=== PATIENT | male | born 1940 | race Hispanic/Latino ===

== ENCOUNTER 2017-07-15 01:47 | Observation (INO) | payer OTHER ==
[~2017-07-15] VITALS: Ht 175.3 cm; Wt 98.0 kg
[2017-07-15] MEDS ORDERED: PROCHLORPERAZINE EDISYLATE 10 MG/2 ML VIAL ONE (02:04)
[2017-07-15] MEDS ORDERED: SODIUM CHLORIDE 0.9% 500ML 500 ML IV ONE (02:04)
[2017-07-15 02:13] LABS: BASOPHILS % (AUTO) 0.6 % (0.0-5.0); EOSINOPHILS % (AUTO) 2.1 % (0.0-8.0); HEMATOCRIT 44.9 % (42-54); MEAN CORPUSCULAR HEMOGLOBIN 29.6 pg (27.0-33.0); MEAN CORPUSCULAR HGB CONC 34.2 g/dL (32.0-36.0); MEAN CORPUSCULAR VOLUME 86.6 fL (79-99); MONOCYTES % (AUTO) 6.2 % (3.0-13.0); NEUTROPHILS % (AUTO) 76.1 % (40.0-77.0); PLATELET COUNT (AUTO) 165 K/uL (130-400); RED BLOOD CELL COUNT(AUTO) 5.19 MIL/uL (4.50-6.20); RED CELL DISTRIBUTION WIDTH 13.7 % (11.0-15.5); WHITE BLOOD COUNT (AUTO) 7.8 K/uL (4.8-10.8)
[2017-07-15 02:23] LABS: INR 0.98 (0.85-1.15); PROTHROMBIN TIME 10.3 SEC (9.6-11.6)
[2017-07-15 02:25] LABS: CREATININE 1.3 mg/dL (0.5-1.5); POTASSIUM 3.7 mmol/L (3.5-5.1)
[2017-07-15 02:33] LABS: ALBUMIN 3.8 g/dL (3.5-5.0); BILIRUBIN,DIRECT 0.1 mg/dL (0.0-0.3); BILIRUBIN,TOTAL 0.3 mg/dL (0.2-1.0); TOTAL PROTEIN, SERUM 7.5 g/dL (6.0-8.3)
[2017-07-15 05:10] LABS: APPEARANCE,URINE Clear (CLEAR); BILIRUBIN,URINE Negative (NEGATIVE); COLOR,URINE Yellow (YELLOW); GLUCOSE, URINE (UA) Negative (NEGATIVE); KETONES,URINE Negative (NEGATIVE); LEUKOCYTE ESTERASE ,URINE Negative (NEGATIVE); NITRATE,URINE Negative (NEGATIVE); OCCULT BLOOD,URINE Negative (NEGATIVE); PH,URINE 5.5 (5.0-8.0); PROTEIN,URINE Negative (NEGATIVE); UROBILINOGEN,URINE 0.2 mg/dL (0.2-1.0)
[2017-07-15] MEDS ORDERED: ASPIRIN 81MG TAB.CHEW ONE (05:16)
[2017-07-15 05:28] LABS: AMPHET/METH SCREEN,URINE NEGATIVE (NEGATIVE); BARBITURATE SCREEN, URINE NEGATIVE (NEGATIVE); BENZODIAZEPINES SCREEN,URINE NEGATIVE (NEGATIVE); CANNABINOID SCREEN,URINE NEGATIVE (NEGATIVE); COCAINE SCREEN,URINE NEGATIVE (NEGATIVE); OPIATE SCREEN,URINE NEGATIVE (NEGATIVE); PHENCYCLIDINE SCREEN,URINE NEGATIVE (NEGATIVE)
[2017-07-15] MEDS ORDERED: MECLIZINE HCL 25 MG TABLET ONE (05:50)
[2017-07-15] MEDS ORDERED: POTASSIUM CHLORIDE 20 MEQ ERTAB PO ONE (05:51)
[2017-07-15] MEDS ORDERED: SODIUM CHLORIDE 0.9% 1000ML 1,000 ML IV ONE (06:18)
[2017-07-15] MEDS ORDERED: DEXTROSE 50%-WATER 50 ML DISP.SYRIN IV PRN (07:15)
[2017-07-15] MEDS ORDERED: GLUCAGON 1MG KIT 1 MG ML IM PRN (07:15)
[2017-07-15] MEDS: MECLIZINE HCL 25 MG TABLET PO SCH ×3 (09:00→21:32)
[2017-07-15] MEDS: HUMALOG PO SS1 SQ SCH ×3 (11:30→21:00)
[2017-07-15 12:00] VITALS: BP 138/93
[2017-07-15] MEDS: SODIUM CHLORIDE 0.9% 1000ML 1,000 ML IV SCH ×2 (12:20→23:17)
[2017-07-15] MEDS ORDERED: FLUTICASONE PROPIONATE 50MCG/SPRAY 16 GM BOTTLE EN SCH (13:00)
[2017-07-15] MEDS: LEVOFLOXACIN 500 MG/D5W 100 ML 100 ML IV SCH (15:12)
[2017-07-15 16:00] VITALS: BP 124/75
[2017-07-15] MEDS ORDERED: SIMV40TA5 PO (18:49)
[2017-07-15] MEDS ORDERED: CITA10TA7 PO (18:49)
[2017-07-15] MEDS ORDERED: LISI-613 PO (18:49)
[2017-07-15] MEDS ORDERED: NIFE30TA98 PO (18:49)
[2017-07-15] MEDS ORDERED: TAMS0.4C32 PO (18:49)
[2017-07-15] MEDS ORDERED: ASPI-555 PO (18:49)
[2017-07-15] MEDS ORDERED: MIRT30TA6 PO (18:49)
[2017-07-15 19:56] VITALS: BP 128/83
[2017-07-15 23:35] VITALS: BP 137/77
[2017-07-16 04:00] VITALS: BP 146/88
[2017-07-16] MEDS: HUMALOG PO SS1 SQ SCH ×2 (06:55→11:30)
[2017-07-16 07:38] VITALS: BP 145/90
[2017-07-16] MEDS: MECLIZINE HCL 25 MG TABLET PO SCH ×2 (08:20→13:51)
[2017-07-16 11:19] VITALS: BP 146/84
[2017-07-16] MEDS ORDERED: MECL-111 PO (12:44)
[2017-07-16] MEDS ORDERED: AMOX-429 PO (12:44)
[2017-07-16] MEDS: LEVOFLOXACIN 500 MG/D5W 100 ML 100 ML IV SCH (12:51)
== END 2017-07-16 15:21 | disposition home or self-care (01) ==
LOC: EDH 01:47 → EDHIP 05:45 → 4CH 11:36
PROVIDERS: ADMIT Family Medicine; ATTEND Family Medicine
DX: R42 Dizziness and giddiness (principal); R09.02 Hypoxemia; H70.93 Unspecified mastoiditis, bilateral; I10 Essential (primary) hypertension; E11.51 Type 2 diabetes mellitus with diabetic peripheral angiopathy without gangrene; E78.5 Hyperlipidemia, unspecified; F32.9 Major depressive disorder, single episode, unspecified; I25.10 Atherosclerotic heart disease of native coronary artery without angina pectoris; M19.90 Unspecified osteoarthritis, unspecified site; N40.0 Benign prostatic hyperplasia without lower urinary tract symptoms; R97.20 Elevated prostate specific antigen [PSA]; Z95.1 Presence of aortocoronary bypass graft; Z79.899 Other long term (current) drug therapy
CPT/HCPCS: 36415; 70450; 70551; 80048; 80076; 80305; 81003; 82550; 82948 ×6; 83690; 84484; 85025; 85610; 85730; 93005; 93306; 93880; 96361 ×2; 96365; 96366; 99285; G0378 ×34; J0780; J1956 ×2; J7030 ×3; J7040

== ENCOUNTER 2023-12-14 14:43 | Inpatient (IN) | payer OTHER ==
[~2023-12-14] VITALS: Ht 175.3 cm; Wt 94.9 kg
[~2023-12-14 14:43] MED LIST: AMOX-429 PO; ASPI-556 PO; CITA10TA89 PO; LISI20TA24 PO; MECL-302 PO; MIRT-93 PO; NIFE-78 PO; ROCURONIUM BROMIDE 10MG/1ML 5ML VL IV ONE; SIMV-46 PO; TAMS0.4C32 PO
[2023-12-14 15:52] LABS: BASOPHILS # (AUTO) 0.01 K/uL (0.00-0.20); BASOPHILS % (AUTO) 0.2 % (0.0-5.0); EOSINOPHILS % (AUTO) 1.7 % (0.0-8.0); HEMATOCRIT 43.9 % (42-54); IMMATURE GRANULOCYTE ABSOLUTE 0.03 K/uL (0-1); LYMPHOCYTES # (AUTO) 0.6 K/uL (1.0-4.8); LYMPHOCYTES % (AUTO) 9.9 % (21.0-51.0); MEAN CORPUSCULAR HEMOGLOBIN 29.2 pg (27.0-33.0); MEAN CORPUSCULAR HGB CONC 30.1 g/dL (32.0-36.0); MEAN CORPUSCULAR VOLUME 97.1 fL (79-99); MONOCYTES # (AUTO) 0.6 K/uL (0.1-1.0); MONOCYTES % (AUTO) 10.4 % (3.0-13.0); NEUTROPHILS # (AUTO) 4.5 K/uL (1.8-7.7); NEUTROPHILS % (AUTO) 77.3 % (40.0-77.0); NUCLEATED RED BLOOD CELLS 0.3 % (0.0-0.19); PLATELET COUNT (AUTO) 153 K/uL (130-400); RED BLOOD CELL COUNT(AUTO) 4.52 MIL/uL (4.50-6.20); RED CELL DISTRIBUTION WIDTH 14.5 % (11.0-15.5); WHITE BLOOD COUNT (AUTO) 5.9 K/uL (4.8-10.8)
[2023-12-14 15:53] VITALS: PULSE 75; RESP 26; O2SAT 99
[2023-12-14 15:54] LABS: ABG BASE EXCESS 4.2 mmol/L (-2.0-3.0); ABG HCO3 32.3 mmol/L (21.0-28.0); ABG OXYGEN SATURATION 69.3 % (95.0-99.0); ABG PCO2 64 mmHg (35-48); ABG PH 7.323 (7.35-7.450); DEVICE COMMENT RR OSCAR; PO2, ARTERIAL BG < 45.0 mmHg (83.0-108.0); VENT MODE, BG RA (ROOM AIR)
[2023-12-14 16:00] LABS: CREATININE 1.4 mg/dL (0.5-1.3); POTASSIUM 4.6 mmol/L (3.5-5.1)
[2023-12-14 16:08] LABS: ALBUMIN 3.2 g/dL (3.5-5.0); BILIRUBIN,TOTAL 0.2 mg/dL (0.2-1.0); TOTAL PROTEIN, SERUM 6.8 g/dL (6.0-8.3)
[2023-12-14] MEDS ORDERED: IOHEXOL 350 MG/ML 100ML INFUS..BTL IV ONE (17:10)
[2023-12-14] MEDS: FUROSEMIDE 40MG VIAL IV ONE (19:29)
[2023-12-14 19:45] VITALS: PULSE 78; RESP 24; O2SAT 96
[2023-12-14] MEDS ORDERED: LACTULOSE 20 GM/30 ML UDCUP PO PRN (20:30)
[2023-12-14] MEDS ORDERED: DOCUSATE SODIUM 100 MG CAP PO PRN (20:30)
[2023-12-14] MEDS ORDERED: IPRATROPIUM/ALBUTEROL SULFATE 3 ML SOLUTION IH PRN (20:30)
[2023-12-14] MEDS ORDERED: ONDANSETRON 4MG INJ IVP PRN (20:30)
[2023-12-14 20:42] LABS: ABG BASE EXCESS 1.3 mmol/L (-2.0-3.0); ABG HCO3 31.6 mmol/L (21.0-28.0); ABG OXYGEN SATURATION 94.2 % (95.0-99.0); ABG PCO2 80 mmHg (35-48); ABG PH 7.216 (7.35-7.450); CARBON MONOXIDE 0.6; HHb 5.7; PO2, ARTERIAL BG 78.8 mmHg (83.0-108.0); VENT MODE, BG BIPAP 14-7 (ROOM AIR)
[2023-12-14] MEDS: INSULIN HUMULIN R 100 UNIT/ML 3ML SQ SCH (21:00)
[2023-12-14 21:29] VITALS: PULSE 72; RESP 32; O2SAT 97
[2023-12-14] MEDS: LISINOPRIL 10 MG TABLET PO SCH (21:45)
[2023-12-14] MEDS: ASPIRIN 81 MG EC TAB PO SCH (21:45)
[2023-12-14] MEDS: ATORVASTATIN 40 MG TABLET PO SCH (21:45)
[2023-12-14] MEDS: TAMSULOSIN HCL 0.4 MG CAP.ER.24H PO SCH (21:45)
[2023-12-14] MEDS: DOXYCYCLINE 100MG+NS 250ML 250 ML IV SCH (21:46)
[2023-12-14] MEDS: HEPARIN 5,000 UNIT VIAL SQ SCH (21:46)
[2023-12-14] MEDS: SOLU-MEDROL 125MG VIAL IVP ONE (21:46)
[2023-12-14 22:39] LABS: SARS-CoV-2, RNA, NAAT NEGATIVE SARS CoV-2 (NEGATIVE)
[2023-12-14 22:45] LABS: INFLUENZA TYPE A Negative For Type A (NEGATIVE); INFLUENZA TYPE B Negative For Type B (NEGATIVE)
[2023-12-14 23:20] LABS: APPEARANCE,URINE CLEAR (CLEAR); BILIRUBIN,URINE NEGATIVE (NEGATIVE); COLOR,URINE COLORLESS (YELLOW); GLUCOSE, URINE (UA) NEGATIVE (NEGATIVE); KETONES,URINE NEGATIVE (NEGATIVE); LEUKOCYTE ESTERASE ,URINE NEGATIVE Leu/uL (NEGATIVE); NITRATE,URINE NEGATIVE (NEGATIVE); OCCULT BLOOD,URINE NEGATIVE (NEGATIVE); PROTEIN,URINE NEGATIVE (NEGATIVE); UROBILINOGEN,URINE 0.2 mg/dL (0.2-1.0)
[2023-12-14 23:23] LABS: ADD UA MICROSCOPIC NO
[2023-12-15] VITALS (54 sets, daily range): BP systolic 70–179; BP diastolic 40–98; PULSE 66–96; RESP 11–46; O2SAT 88–98
[2023-12-15] MEDS: TEMAZEPAM 15 MG CAPSULE PO PRN (00:07)
[2023-12-15] MEDS: IPRATROPIUM 0.5 MG/2.5 ML INH IH SCH (00:17)
[2023-12-15 01:11] LABS: ABG BASE EXCESS 4.9 mmol/L (-2.0-3.0); ABG HCO3 33.3 mmol/L (21.0-28.0); ABG OXYGEN SATURATION 85.9 % (95.0-99.0); ABG PCO2 66 mmHg (35-48); ABG PH 7.319 (7.35-7.450); PO2, ARTERIAL BG 56.2 mmHg (83.0-108.0); VENT MODE, BG BIPAP 16-7 (ROOM AIR)
[2023-12-15 06:28] LABS: BASOPHILS # (AUTO) 0.02 K/uL (0.00-0.20); BASOPHILS % (AUTO) 0.2 % (0.0-5.0); HEMATOCRIT 45.8 % (42-54); IMMATURE GRANULOCYTE ABSOLUTE 0.07 K/uL (0-1); LYMPHOCYTES # (AUTO) 0.5 K/uL (1.0-4.8); LYMPHOCYTES % (AUTO) 4.9 % (21.0-51.0); MEAN CORPUSCULAR HEMOGLOBIN 28.7 pg (27.0-33.0); MEAN CORPUSCULAR HGB CONC 30.6 g/dL (32.0-36.0); MONOCYTES # (AUTO) 0.1 K/uL (0.1-1.0); MONOCYTES % (AUTO) 1.2 % (3.0-13.0); NEUTROPHILS # (AUTO) 8.7 K/uL (1.8-7.7); PLATELET COUNT (AUTO) 150 K/uL (130-400); RED BLOOD CELL COUNT(AUTO) 4.87 MIL/uL (4.50-6.20); RED CELL DISTRIBUTION WIDTH 14.4 % (11.0-15.5); WHITE BLOOD COUNT (AUTO) 9.4 K/uL (4.8-10.8)
[2023-12-15] MEDS: SOLU-MEDROL 125MG VIAL IVP SCH (06:35)
[2023-12-15 06:44] LABS: CREATININE 1.3 mg/dL (0.5-1.3); MAGNESIUM 2.2 mg/dL (1.80-2.40); PHOSPHORUS 4.4 mg/dL (2.5-4.9)
[2023-12-15 07:13] LABS: HEMOGLOBIN A1C 7.4 % (4.0-6.0)
[2023-12-15 07:52] LABS: ABG BASE EXCESS 3.6 mmol/L (-2.0-3.0); ABG HCO3 35.4 mmol/L (21.0-28.0); ABG OXYGEN SATURATION 94.4 % (95.0-99.0); ABG PCO2 94 mmHg (35-48); ABG PH 7.192 (7.35-7.450); CARBON MONOXIDE 0.8; HHb 5.5; PO2, ARTERIAL BG 82.2 mmHg (83.0-108.0)
[2023-12-15] MEDS: ASPIRIN 81MG CHEW TAB PO SCH (09:00)
[2023-12-15] MEDS: CEFTRIAXONE 2GM VIAL IVPB SCH (15:45)
[2023-12-15] MEDS: FUROSEMIDE 100MG VIAL 100 MG in 0.9%NACL 100ML 100 ML IV SCH (15:52)
[2023-12-15] MEDS: BUDESONIDE 0.5 MG/2 ML INH IH SCH (18:19)
[2023-12-15 18:24] LABS: CREATININE 1.2 mg/dL (0.5-1.3); POTASSIUM 5.1 mmol/L (3.5-5.1)
[2023-12-15] MEDS: FAMOTIDINE 20MG VIAL IV SCH (20:47)
[2023-12-15] MEDS: MIRTAZAPINE 15 MG TABLET PO SCH (20:50)
[2023-12-15] MEDS ORDERED: NON-FORMULARY MEDICATION 1 EACH (Mirtazapine 30 MG) PO SCH ×2 (21:00)
[2023-12-15] MEDS ORDERED: MIDAZOLAM HCL 1 MG/ML 2ML VIAL IVP PRN (22:30)
[2023-12-15] MEDS: SOLU-MEDROL 40MG VIAL IVP SCH (23:16)
[2023-12-15] MEDS: NOREPINEPHRIN 4MG/NS 250ML 250 ML IV SCH (23:17)
[2023-12-15] MEDS: FENTANYL 2500MCG+NS 250ML 250 ML IV SCH (23:17)
[2023-12-15] MEDS: NOREPINEPHRIN 4MG/NS 250ML 250 ML IV ONE (23:24)
[2023-12-15] MEDS: FENTANYL 1000MCG+NS 100ML 100 ML IV ONE (23:24)
[2023-12-16] VITALS (129 sets, daily range): BP systolic 82–130; BP diastolic 42–93; PULSE 56–75; RESP 12–35; O2SAT 91–98
[2023-12-16 01:38] LABS: CREATININE 1.3 mg/dL (0.5-1.3); POTASSIUM 4.8 mmol/L (3.5-5.1)
[2023-12-16] MEDS ORDERED: 0.9%NACL 50ML IV SCH (02:30)
[2023-12-16] MEDS ORDERED: CALCIUM GLUC 1GM/10ML VIAL IVPB SCH (02:30)
[2023-12-16] MEDS: CALCIUM GLUC 1GM/10ML VIAL IV SCH (02:56)
[2023-12-16 04:21] LABS: BASOPHILS # (AUTO) 0.01 K/uL (0.00-0.20); BASOPHILS % (AUTO) 0.1 % (0.0-5.0); HEMATOCRIT 45.4 % (42-54); IMMATURE GRANULOCYTE ABSOLUTE 0.06 K/uL (0-1); LYMPHOCYTES # (AUTO) 0.3 K/uL (1.0-4.8); LYMPHOCYTES % (AUTO) 3.2 % (21.0-51.0); MEAN CORPUSCULAR HEMOGLOBIN 29.1 pg (27.0-33.0); MEAN CORPUSCULAR HGB CONC 30.2 g/dL (32.0-36.0); MEAN CORPUSCULAR VOLUME 96.6 fL (79-99); MONOCYTES # (AUTO) 0.8 K/uL (0.1-1.0); NEUTROPHILS % (AUTO) 88.1 % (40.0-77.0); NUCLEATED RED BLOOD CELLS 0.4 % (0.0-0.19); PLATELET COUNT (AUTO) 166 K/uL (130-400); RED CELL DISTRIBUTION WIDTH 13.8 % (11.0-15.5); WHITE BLOOD COUNT (AUTO) 10.2 K/uL (4.8-10.8)
[2023-12-16] MEDS: MAGNESIUM 2GM PREMIX 50ML 50 ML IV SCH (05:44)
[2023-12-16 05:53] LABS: CREATININE 1.4 mg/dL (0.5-1.3); POTASSIUM 4.1 mmol/L (3.5-5.1)
[2023-12-16 07:28] LABS: ABG BASE EXCESS 5.1 mmol/L (-2.0-3.0); ABG HCO3 37.6 mmol/L (21.0-28.0); ABG OXYGEN SATURATION 97.8 % (95.0-99.0); ABG PCO2 103 mmHg (35-48); ABG PH 7.181 (7.35-7.450); DEVICE COMMENT RR JULIA RN; PO2, ARTERIAL BG 134.7 mmHg (83.0-108.0); VENT MODE, BG AVAPS 600 (ROOM AIR)
[2023-12-16 07:28] LABS: ABG BASE EXCESS 8.1 mmol/L (-2.0-3.0); ABG HCO3 28.2 mmol/L (21.0-28.0); ABG OXYGEN SATURATION 95.7 % (95.0-99.0); ABG PCO2 27 mmHg (35-48); ABG PH 7.635 (7.35-7.450); CARBON MONOXIDE 0.8; DEVICE COMMENT RR; HHb 4.3; PO2, ARTERIAL BG 55.9 mmHg (83.0-108.0); VENT MODE, BG AC (ROOM AIR)
[2023-12-16 07:28] LABS: ABG BASE EXCESS 3.5 mmol/L (-2.0-3.0); ABG HCO3 35.3 mmol/L (21.0-28.0); ABG OXYGEN SATURATION 84.2 % (95.0-99.0); ABG PCO2 94 mmHg (35-48); ABG PH 7.191 (7.35-7.450); PO2, ARTERIAL BG 61.6 mmHg (83.0-108.0); VENT MODE, BG BIPAP 17.7 (ROOM AIR)
[2023-12-16 07:28] LABS: ABG BASE EXCESS 8.3 mmol/L (-2.0-3.0); ABG HCO3 35.3 mmol/L (21.0-28.0); ABG PCO2 57 mmHg (35-48); ABG PH 7.407 (7.35-7.450); HHb 10.9; VENT MODE, BG AC (ROOM AIR)
[2023-12-16 07:29] LABS: ABG BASE EXCESS 8.9 mmol/L (-2.0-3.0); ABG HCO3 30.2 mmol/L (21.0-28.0); ABG OXYGEN SATURATION 97.4 % (95.0-99.0); ABG PCO2 31 mmHg (35-48); ABG PH 7.602 (7.35-7.450); CARBON MONOXIDE 0.6; DEVICE COMMENT RR; HHb 2.6; PO2, ARTERIAL BG 69.9 mmHg (83.0-108.0); VENT MODE, BG AC (ROOM AIR)
[2023-12-16] MEDS ORDERED: BUMETANIDE 2.5MG/10ML (DRIP) 40 ML IV SCH (08:00)
[2023-12-16] MEDS: MIDAZOLAM 50MG-0.9% NS 50ML 50 ML IV SCH (09:06)
[2023-12-16 09:41] LABS: ABG BASE EXCESS 8.7 mmol/L (-2.0-3.0); ABG HCO3 36.6 mmol/L (21.0-28.0); ABG OXYGEN SATURATION 99.4 % (95.0-99.0); ABG PCO2 64 mmHg (35-48); ABG PH 7.375 (7.35-7.450); DEVICE COMMENT RN EDDIE; VENT MODE, BG AC (ROOM AIR)
[2023-12-16] MEDS ORDERED: VANCOMYCIN PROTOCOL PER PHARMACY IV SCH (12:00)
[2023-12-16] MEDS: ARTIFICAL TEARS SOL 15 ML OU SCH (12:00)
[2023-12-16] MEDS: VANCOMYCIN 1.25 GM/250 ML BAG 250 ML IV SCH (12:49)
[2023-12-16] MEDS: CHLORHEXIDINE GLUCONATE 15 ML MOUTHWASH MM SCH (12:49)
[2023-12-16] MEDS: FUROSEMIDE 100MG VIAL 100 MG in 0.9%NACL 100ML 100 ML IV SCH (16:54)
[2023-12-16 16:55] LABS: CREATININE 1.6 mg/dL (0.5-1.3); MAGNESIUM 2.4 mg/dL (1.80-2.40); POTASSIUM 4.1 mmol/L (3.5-5.1)
[2023-12-16] MEDS: INSULIN HUMULIN R 100 UNIT/ML 3ML SQ SCH (17:09)
[2023-12-16 21:36] LABS: ABG BASE EXCESS 8.5 mmol/L (-2.0-3.0); ABG HCO3 34.5 mmol/L (21.0-28.0); ABG OXYGEN SATURATION 92.7 % (95.0-99.0); ABG PCO2 52 mmHg (35-48); ABG PH 7.437 (7.35-7.450); CARBON MONOXIDE 0.5; HHb 7.2; PO2, ARTERIAL BG 63.5 mmHg (83.0-108.0); VENT MODE, BG AC VC (ROOM AIR)
[2023-12-16 22:02] LABS: CREATININE 1.6 mg/dL (0.5-1.3); POTASSIUM 4.1 mmol/L (3.5-5.1)
[2023-12-17] VITALS (95 sets, daily range): BP systolic 86–167; BP diastolic 41–92; PULSE 51–128; RESP 18–61; O2SAT 92–96
[2023-12-17] MEDS ORDERED: DIGOXIN 250 MCG/ML 2ML AMP IV ONE (02:30)
[2023-12-17 03:58] LABS: HEMATOCRIT 43.3 % (42-54); IMMATURE GRANULOCYTE ABSOLUTE 0.05 K/uL (0-1); LYMPHOCYTES # (AUTO) 0.3 K/uL (1.0-4.8); LYMPHOCYTES % (AUTO) 3.1 % (21.0-51.0); MEAN CORPUSCULAR HEMOGLOBIN 28.4 pg (27.0-33.0); MEAN CORPUSCULAR HGB CONC 31.2 g/dL (32.0-36.0); MEAN CORPUSCULAR VOLUME 91.2 fL (79-99); MONOCYTES # (AUTO) 1.1 K/uL (0.1-1.0); MONOCYTES % (AUTO) 9.7 % (3.0-13.0); NEUTROPHILS # (AUTO) 9.4 K/uL (1.8-7.7); NEUTROPHILS % (AUTO) 86.7 % (40.0-77.0); PLATELET COUNT (AUTO) 184 K/uL (130-400); RED BLOOD CELL COUNT(AUTO) 4.75 MIL/uL (4.50-6.20); RED CELL DISTRIBUTION WIDTH 15.1 % (11.0-15.5); WHITE BLOOD COUNT (AUTO) 10.9 K/uL (4.8-10.8)
[2023-12-17 04:29] LABS: ALBUMIN 2.9 g/dL (3.5-5.0); BILIRUBIN,TOTAL 0.3 mg/dL (0.2-1.0); CREATININE 1.6 mg/dL (0.5-1.3); MAGNESIUM 2.5 mg/dL (1.80-2.40); PHOSPHORUS 3.1 mg/dL (2.5-4.9); POTASSIUM 4.1 mmol/L (3.5-5.1); TOTAL PROTEIN, SERUM 6.5 g/dL (6.0-8.3)
[2023-12-17] MEDS ORDERED: FUROSEMIDE 40MG VIAL IV STA (07:37)
[2023-12-17 07:42] LABS: INR 1.07 (0.85-1.15); PROTHROMBIN TIME 11.5 SEC (9.6-11.6)
[2023-12-17] MEDS ORDERED: PHENYLEPHRINE HCL 100 MG in 0.9% NACL 250ML 250 ML IV SCH (08:00)
[2023-12-17] MEDS ORDERED: MIDAZOLAM HCL 50 MG in 0.9%NACL 50ML 50 ML IV SCH (08:00)
[2023-12-17] MEDS: LACTATED RINGERS 1000ML IV SCH (09:57)
[2023-12-17 13:48] LABS: ABG BASE EXCESS 5.6 mmol/L (-2.0-3.0); ABG HCO3 30.5 mmol/L (21.0-28.0); ABG OXYGEN SATURATION 95.1 % (95.0-99.0); ABG PCO2 45 mmHg (35-48); ABG PH 7.447 (7.35-7.450); CARBON MONOXIDE 0.4; HHb 4.9; PO2, ARTERIAL BG 71.4 mmHg (83.0-108.0); VENT MODE, BG AC MODE (ROOM AIR)
[2023-12-17] MEDS: DIGOXIN 250 MCG/ML 2ML AMP IV ONE (21:33)
[2023-12-17] MEDS: PHENYLEPHRINE HCL 100 MG in 0.9% NACL 250ML 240 ML IV PRN (23:00)
[2023-12-18] VITALS (88 sets, daily range): BP systolic 95–148; BP diastolic 43–93; PULSE 57–125; RESP 19–34; O2SAT 90–96
[2023-12-18] MEDS: DIGOXIN 250 MCG/ML 2ML AMP IV ONE (02:50)
[2023-12-18 03:32] LABS: ABG BASE EXCESS -0.2 mmol/L (-2.0-3.0); ABG HCO3 24.4 mmol/L (21.0-28.0); ABG OXYGEN SATURATION 96.4 % (95.0-99.0); ABG PCO2 40 mmHg (35-48); ABG PH 7.404 (7.35-7.450); CARBON MONOXIDE 0.4; HHb 3.6; PO2, ARTERIAL BG 85.5 mmHg (83.0-108.0); VENT MODE, BG AC VC (ROOM AIR)
[2023-12-18 04:26] LABS: HEMATOCRIT 45.6 % (42-54); IMMATURE GRANULOCYTE ABSOLUTE 0.02 K/uL (0-1); LYMPHOCYTES # (AUTO) 0.2 K/uL (1.0-4.8); LYMPHOCYTES % (AUTO) 3.1 % (21.0-51.0); MEAN CORPUSCULAR HEMOGLOBIN 28.9 pg (27.0-33.0); MEAN CORPUSCULAR HGB CONC 30.7 g/dL (32.0-36.0); MONOCYTES # (AUTO) 0.4 K/uL (0.1-1.0); MONOCYTES % (AUTO) 4.9 % (3.0-13.0); NEUTROPHILS # (AUTO) 6.7 K/uL (1.8-7.7); NEUTROPHILS % (AUTO) 91.7 % (40.0-77.0); PLATELET COUNT (AUTO) 145 K/uL (130-400); RED BLOOD CELL COUNT(AUTO) 4.85 MIL/uL (4.50-6.20); RED CELL DISTRIBUTION WIDTH 14.9 % (11.0-15.5); WHITE BLOOD COUNT (AUTO) 7.3 K/uL (4.8-10.8)
[2023-12-18 04:40] LABS: ALBUMIN 2.7 g/dL (3.5-5.0); BILIRUBIN,TOTAL 0.3 mg/dL (0.2-1.0); CREATININE 1.3 mg/dL (0.5-1.3); POTASSIUM 4.5 mmol/L (3.5-5.1); TOTAL PROTEIN, SERUM 6.5 g/dL (6.0-8.3)
[2023-12-18] MEDS: ENOXAPARIN SODIUM 100 MG/1 ML SQ SCH (09:50)
[2023-12-18] MEDS: VANCOMYCIN 1.75 GM/250 ML BAG 250 ML IV ONE (15:46)
[2023-12-19] VITALS (122 sets, daily range): BP systolic 84–191; BP diastolic 41–78; PULSE 55–86; RESP 15–27; O2SAT 95–99
[2023-12-19] MEDS: ACETAMINOPHEN 650 MG SUPPOSITORY RC PRN (00:05)
[2023-12-19 03:23] LABS: HEMATOCRIT 45.1 % (42-54); IMMATURE GRANULOCYTE ABSOLUTE 0.05 K/uL (0-1); LYMPHOCYTES # (AUTO) 0.3 K/uL (1.0-4.8); LYMPHOCYTES % (AUTO) 2.6 % (21.0-51.0); MEAN CORPUSCULAR HEMOGLOBIN 28.8 pg (27.0-33.0); MEAN CORPUSCULAR HGB CONC 31.7 g/dL (32.0-36.0); MEAN CORPUSCULAR VOLUME 90.7 fL (79-99); MONOCYTES # (AUTO) 0.5 K/uL (0.1-1.0); MONOCYTES % (AUTO) 4.3 % (3.0-13.0); NEUTROPHILS # (AUTO) 10.5 K/uL (1.8-7.7); NEUTROPHILS % (AUTO) 92.7 % (40.0-77.0); PLATELET COUNT (AUTO) 173 K/uL (130-400); RED BLOOD CELL COUNT(AUTO) 4.97 MIL/uL (4.50-6.20); WHITE BLOOD COUNT (AUTO) 11.4 K/uL (4.8-10.8)
[2023-12-19 03:41] LABS: ALBUMIN 2.7 g/dL (3.5-5.0); BILIRUBIN,TOTAL 0.4 mg/dL (0.2-1.0); CREATININE 1.4 mg/dL (0.5-1.3); MAGNESIUM 2.6 mg/dL (1.80-2.40); PHOSPHORUS 3.3 mg/dL (2.5-4.9); POTASSIUM 4.7 mmol/L (3.5-5.1); TOTAL PROTEIN, SERUM 6.3 g/dL (6.0-8.3)
[2023-12-19 04:04] LABS: ABG BASE EXCESS 2.1 mmol/L (-2.0-3.0); ABG HCO3 26.9 mmol/L (21.0-28.0); ABG OXYGEN SATURATION 94.1 % (95.0-99.0); ABG PCO2 43 mmHg (35-48); ABG PH 7.419 (7.35-7.450); VENT MODE, BG AC (ROOM AIR)
[2023-12-19] MEDS: POLYETHYLENE GLYCOL 3350 17 GM POWD.PACK PO SCH (09:50)
[2023-12-19] MEDS: FUROSEMIDE 40MG VIAL IV ONE (09:51)
[2023-12-19] MEDS: BISACODYL 10 MG SUPP.RECT RC ONE (09:54)
[2023-12-19 12:00] LABS: ABG BASE EXCESS 1.3 mmol/L (-2.0-3.0); ABG HCO3 27.6 mmol/L (21.0-28.0); ABG OXYGEN SATURATION 93.1 % (95.0-99.0); ABG PCO2 50 mmHg (35-48); ABG PH 7.361 (7.35-7.450); PO2, ARTERIAL BG 69.3 mmHg (83.0-108.0); VENT MODE, BG AC (ROOM AIR)
[2023-12-19] MEDS ORDERED: METF-444 PO (12:02)
[2023-12-19] MEDS ORDERED: METF-446 PO (13:00)
[2023-12-19] MEDS ORDERED: BUPR-561 PO (13:00)
[2023-12-19] MEDS ORDERED: FINA5TAB41 PO (13:00)
[2023-12-19] MEDS ORDERED: LISI10TA24 PO (13:00)
[2023-12-19] MEDS ORDERED: FLUT16H NS (13:00)
[2023-12-19] MEDS ORDERED: IBUP-2077 PO (13:00)
[2023-12-19] MEDS ORDERED: CITA-107 PO (13:00)
[2023-12-19] MEDS: BUMETANIDE 2.5MG/10ML (DRIP) 40 ML IV SCH (13:29)
[2023-12-19] MEDS: VANCOMYCIN 1.5 GM/250 ML BAG 250 ML IV SCH (14:00)
[2023-12-19] MEDS ORDERED: BUMETANIDE 1 MG TAB PO SCH (21:00)
[2023-12-20] VITALS (100 sets, daily range): BP systolic 95–185; BP diastolic 44–80; PULSE 55–85; RESP 11–65; O2SAT 93–99
[2023-12-20 03:22] LABS: BASOPHILS # (AUTO) 0.01 K/uL (0.00-0.20); BASOPHILS % (AUTO) 0.1 % (0.0-5.0); HEMATOCRIT 47.9 % (42-54); IMMATURE GRANULOCYTE ABSOLUTE 0.04 K/uL (0-1); LYMPHOCYTES # (AUTO) 0.3 K/uL (1.0-4.8); LYMPHOCYTES % (AUTO) 2.3 % (21.0-51.0); MEAN CORPUSCULAR HEMOGLOBIN 29.1 pg (27.0-33.0); MEAN CORPUSCULAR HGB CONC 31.3 g/dL (32.0-36.0); MEAN CORPUSCULAR VOLUME 92.8 fL (79-99); MONOCYTES # (AUTO) 0.7 K/uL (0.1-1.0); MONOCYTES % (AUTO) 5.3 % (3.0-13.0); NEUTROPHILS # (AUTO) 11.8 K/uL (1.8-7.7); PLATELET COUNT (AUTO) 167 K/uL (130-400); RED BLOOD CELL COUNT(AUTO) 5.16 MIL/uL (4.50-6.20); RED CELL DISTRIBUTION WIDTH 14.9 % (11.0-15.5); WHITE BLOOD COUNT (AUTO) 12.8 K/uL (4.8-10.8)
[2023-12-20 03:38] LABS: ALBUMIN 2.8 g/dL (3.5-5.0); BILIRUBIN,TOTAL 0.5 mg/dL (0.2-1.0); CREATININE 1.7 mg/dL (0.5-1.3); MAGNESIUM 2.3 mg/dL (1.80-2.40); POTASSIUM 3.9 mmol/L (3.5-5.1); TOTAL PROTEIN, SERUM 6.5 g/dL (6.0-8.3)
[2023-12-20 08:37] LABS: ABG BASE EXCESS 1.4 mmol/L (-2.0-3.0); ABG HCO3 25.6 mmol/L (21.0-28.0); ABG OXYGEN SATURATION 94.6 % (95.0-99.0); ABG PCO2 39 mmHg (35-48); ABG PH 7.432 (7.35-7.450); DEVICE COMMENT LEO RN
[2023-12-20] MEDS: METOCLOPRAMIDE 10 MG/2 ML VIAL IVP SCH (08:51)
[2023-12-20] MEDS: ACETAMINOPHEN 325 MG TAB PO PRN (08:53)
[2023-12-20] MEDS: INSULIN GLARGINE 100 UNITS/ML 10 ML VIAL SQ SCH (08:57)
[2023-12-20] MEDS: BUMETANIDE 1MG/4ML VIAL IVP SCH (09:01)
[2023-12-20] MEDS ORDERED: IOHEXOL 350 MG/ML 100ML INFUS..BTL IV ONE (15:41)
[2023-12-21] VITALS (80 sets, daily range): BP systolic 84–191; BP diastolic 41–101; PULSE 61–154; RESP 13–109; O2SAT 91–98
[2023-12-21 04:35] LABS: BASOPHILS # (AUTO) 0.01 K/uL (0.00-0.20); BASOPHILS % (AUTO) 0.1 % (0.0-5.0); IMMATURE GRANULOCYTE ABSOLUTE 0.05 K/uL (0-1); LYMPHOCYTES # (AUTO) 0.2 K/uL (1.0-4.8); LYMPHOCYTES % (AUTO) 2.2 % (21.0-51.0); MEAN CORPUSCULAR HEMOGLOBIN 28.7 pg (27.0-33.0); MEAN CORPUSCULAR HGB CONC 31.8 g/dL (32.0-36.0); MEAN CORPUSCULAR VOLUME 90.3 fL (79-99); MONOCYTES % (AUTO) 9.1 % (3.0-13.0); NEUTROPHILS # (AUTO) 9.4 K/uL (1.8-7.7); NEUTROPHILS % (AUTO) 88.1 % (40.0-77.0); PLATELET COUNT (AUTO) 148 K/uL (130-400); RED BLOOD CELL COUNT(AUTO) 4.87 MIL/uL (4.50-6.20); WHITE BLOOD COUNT (AUTO) 10.7 K/uL (4.8-10.8)
[2023-12-21 04:48] LABS: CREATININE 1.7 mg/dL (0.5-1.3); MAGNESIUM 2.6 mg/dL (1.80-2.40); POTASSIUM 3.7 mmol/L (3.5-5.1)
[2023-12-21 04:54] LABS: ABG BASE EXCESS 4.1 mmol/L (-2.0-3.0); ABG HCO3 27.6 mmol/L (21.0-28.0); ABG OXYGEN SATURATION 97.3 % (95.0-99.0); ABG PCO2 38 mmHg (35-48); ABG PH 7.483 (7.35-7.450); CARBON MONOXIDE 0.6; HHb 2.7; PO2, ARTERIAL BG 94.5 mmHg (83.0-108.0); VENT MODE, BG AC (ROOM AIR)
[2023-12-21] MEDS ORDERED: KCL 20 MEQ ERTAB PO PRN (09:30)
[2023-12-21] MEDS: POTASSIUM CHLORIDE 10% ELIXIR 20 MEQ/15 ML UDCUP PO PRN (09:40)
[2023-12-21] MEDS: BUMETANIDE 2.5MG/10ML (DRIP) 80 ML IV SCH (09:55)
[2023-12-21 11:00] LABS: ABG BASE EXCESS 3.6 mmol/L (-2.0-3.0); ABG HCO3 28.9 mmol/L (21.0-28.0); ABG OXYGEN SATURATION 96.2 % (95.0-99.0); ABG PCO2 46 mmHg (35-48); ABG PH 7.418 (7.35-7.450); CARBON MONOXIDE 0.5; HHb 3.8; PO2, ARTERIAL BG 86.3 mmHg (83.0-108.0); VENT MODE, BG AC (ROOM AIR)
[2023-12-21] MEDS: INSULIN HUMULIN R 100 UNIT/ML 3ML SQ SCH (11:25)
[2023-12-21] MEDS: HYDRALAZINE 20MG/ML VIAL IV PRN (12:33)
[2023-12-21] MEDS: METOPROLOL TARTRATE 1 MG/ML 5ML VIAL IV ONE ×2 (13:33→13:39)
[2023-12-21] MEDS: DEXMEDETOMIDINE 400MCG/NS100ML IV SCH (13:34)
[2023-12-21] MEDS: AMIODARONE 150MG VIAL 150 MG in DEXTROSE 5%-WATER 100 ML IV STA (14:09)
[2023-12-21] MEDS: AMIODARONE 360 MG in DEXTROSE 5%-WATER 200 ML IV SCH (14:55)
[2023-12-21] MEDS: POTASSIUM CHLORIDE 20MEQ/100ML 100 ML IV PRN (15:41)
[2023-12-21 19:04] LABS: ABG BASE EXCESS 4.7 mmol/L (-2.0-3.0); ABG HCO3 28.4 mmol/L (21.0-28.0); ABG OXYGEN SATURATION 91.9 % (95.0-99.0); ABG PCO2 39 mmHg (35-48); ABG PH 7.483 (7.35-7.450); CARBON MONOXIDE 0.6; PO2, ARTERIAL BG 58.9 mmHg (83.0-108.0)
[2023-12-21 20:13] LABS: CREATININE 1.8 mg/dL (0.5-1.3); POTASSIUM 5.2 mmol/L (3.5-5.1)
[2023-12-21] MEDS: AMIODARONE 540 MG in DEXTROSE 5%-WATER 300 ML IV SCH (20:30)
[2023-12-21] MEDS: BUMETANIDE 1MG/4ML VIAL IVP SCH (20:58)
[2023-12-22] VITALS (97 sets, daily range): BP systolic 80–223; BP diastolic 44–119; PULSE 81–117; RESP 14–31; O2SAT 93–96
[2023-12-22 04:11] LABS: BASOPHILS # (AUTO) 0.02 K/uL (0.00-0.20); BASOPHILS % (AUTO) 0.1 % (0.0-5.0); HEMATOCRIT 52.5 % (42-54); IMMATURE GRANULOCYTE ABSOLUTE 0.13 K/uL (0-1); LYMPHOCYTES # (AUTO) 0.4 K/uL (1.0-4.8); MEAN CORPUSCULAR HEMOGLOBIN 29.2 pg (27.0-33.0); MEAN CORPUSCULAR HGB CONC 30.9 g/dL (32.0-36.0); MEAN CORPUSCULAR VOLUME 94.6 fL (79-99); MONOCYTES # (AUTO) 1.3 K/uL (0.1-1.0); MONOCYTES % (AUTO) 7.1 % (3.0-13.0); NEUTROPHILS # (AUTO) 16.4 K/uL (1.8-7.7); NEUTROPHILS % (AUTO) 90.1 % (40.0-77.0); PLATELET COUNT (AUTO) 167 K/uL (130-400); RED BLOOD CELL COUNT(AUTO) 5.55 MIL/uL (4.50-6.20); RED CELL DISTRIBUTION WIDTH 15.1 % (11.0-15.5); WHITE BLOOD COUNT (AUTO) 18.2 K/uL (4.8-10.8)
[2023-12-22 04:23] LABS: CREATININE 1.8 mg/dL (0.5-1.3); MAGNESIUM 2.7 mg/dL (1.80-2.40); PHOSPHORUS 3.8 mg/dL (2.5-4.9); POTASSIUM 4.6 mmol/L (3.5-5.1)
[2023-12-22] MEDS: METOPROLOL SUCCINATE 50 MG TAB.SR.24H PO SCH (08:55)
[2023-12-22] MEDS ORDERED: COMPOUND IV MISC 1 EACH IVSOLN MISC PRN (12:00)
[2023-12-22] MEDS ORDERED: COMPOUND IV REFRIGERATED 1 EACH IVSOLN MISC PRN (12:00)
[2023-12-22] MEDS: MEROPENEM 1 GM in 0.9%NACL 100ML 100 ML IV SCH (12:45)
[2023-12-22] MEDS ORDERED: VASOPRESSIN 40 UNITS in 0.9%NACL 50ML 40 ML IV SCH (14:30)
[2023-12-22] MEDS: BUMETANIDE 1 MG TAB PO SCH (20:47)
[2023-12-23] VITALS (105 sets, daily range): BP systolic 82–141; BP diastolic 45–82; PULSE 80–131; RESP 13–29; O2SAT 89–93
[2023-12-23 04:19] LABS: BASOPHILS # (AUTO) 0.05 K/uL (0.00-0.20); BASOPHILS % (AUTO) 0.2 % (0.0-5.0); EOSINOPHILS # (AUTO) 3.33 K/uL (0.00-0.70); EOSINOPHILS % (AUTO) 12.7 % (0.0-8.0); HEMATOCRIT 55.8 % (42-54); IMMATURE GRANULOCYTE ABSOLUTE 0.23 K/uL (0-1); LYMPHOCYTES # (AUTO) 0.7 K/uL (1.0-4.8); LYMPHOCYTES % (AUTO) 2.8 % (21.0-51.0); MEAN CORPUSCULAR HEMOGLOBIN 29.3 pg (27.0-33.0); MEAN CORPUSCULAR HGB CONC 30.8 g/dL (32.0-36.0); MEAN CORPUSCULAR VOLUME 95.1 fL (79-99); MONOCYTES % (AUTO) 7.5 % (3.0-13.0); NEUTROPHILS # (AUTO) 19.9 K/uL (1.8-7.7); NEUTROPHILS % (AUTO) 75.9 % (40.0-77.0); NUCLEATED RED BLOOD CELLS 0.2 % (0.0-0.19); PHOSPHORUS 4.7 mg/dL (2.5-4.9); PLATELET COUNT (AUTO) 176 K/uL (130-400); POTASSIUM 4.8 mmol/L (3.5-5.1); RED BLOOD CELL COUNT(AUTO) 5.87 MIL/uL (4.50-6.20); RED CELL DISTRIBUTION WIDTH 16.7 % (11.0-15.5); WHITE BLOOD COUNT (AUTO) 26.2 K/uL (4.8-10.8)
[2023-12-23 07:42] LABS: ABG BASE EXCESS 0.7 mmol/L (-2.0-3.0); ABG HCO3 24.5 mmol/L (21.0-28.0); ABG OXYGEN SATURATION 90.9 % (95.0-99.0); ABG PCO2 37 mmHg (35-48); ABG PH 7.438 (7.35-7.450); DEVICE COMMENT RN ASHELY; PO2, ARTERIAL BG 57.4 mmHg (83.0-108.0); VENT MODE, BG AC LR (ROOM AIR)
[2023-12-23] MEDS: AMIODARONE 200 MG TABLET PO SCH (08:25)
[2023-12-23] MEDS: PROPOFOL 1000 MG/100 ML IV PRN (09:23)
[2023-12-23] MEDS: PROPOFOL 1000 MG/100 ML 100 ML IV ONE (09:23)
[2023-12-23] MEDS: DEXTROSE 5%-WATER 1,000 ML IV SCH (11:31)
[2023-12-23] MEDS: INSULIN GLARGINE 100 UNITS/ML 10 ML VIAL SQ ONE (12:53)
[2023-12-23] MEDS: SOLU-MEDROL 40MG VIAL IVP SCH (14:33)
[2023-12-23 15:17] LABS: CREATININE 1.8 mg/dL (0.5-1.3); POTASSIUM 5.4 mmol/L (3.5-5.1)
[2023-12-23] MEDS ORDERED: FENTANYL CITRATE PF 50 MCG/1 ML 2ML VIAL IVP PRN (17:00)
[2023-12-23] MEDS ORDERED: AMIODARONE 200 MG TABLET PO SCH (17:00)
[2023-12-23] MEDS: METOLAZONE 2.5 MG TABLET PO SCH (17:54)
[2023-12-23] MEDS: INSULIN GLARGINE 100 UNITS/ML 10 ML VIAL SQ SCH (20:15)
[2023-12-23 21:20] LABS: POTASSIUM 4.2 mmol/L (3.5-5.1)
[2023-12-24] VITALS (105 sets, daily range): BP systolic 76–156; BP diastolic 33–103; PULSE 104–134; RESP 6–26; TEMP 100.4; O2SAT 5–97
[2023-12-24 03:52] LABS: BASOPHILS # (AUTO) 0.03 K/uL (0.00-0.20); BASOPHILS % (AUTO) 0.1 % (0.0-5.0); HEMATOCRIT 55.1 % (42-54); IMMATURE GRANULOCYTE ABSOLUTE 0.19 K/uL (0-1); LYMPHOCYTES # (AUTO) 0.8 K/uL (1.0-4.8); LYMPHOCYTES % (AUTO) 3.8 % (21.0-51.0); MEAN CORPUSCULAR HGB CONC 30.1 g/dL (32.0-36.0); MEAN CORPUSCULAR VOLUME 96.3 fL (79-99); MONOCYTES # (AUTO) 1.4 K/uL (0.1-1.0); MONOCYTES % (AUTO) 7.1 % (3.0-13.0); NEUTROPHILS % (AUTO) 88.1 % (40.0-77.0); NUCLEATED RED BLOOD CELLS 0.2 % (0.0-0.19); PLATELET COUNT (AUTO) 164 K/uL (130-400); RED BLOOD CELL COUNT(AUTO) 5.72 MIL/uL (4.50-6.20); RED CELL DISTRIBUTION WIDTH 15.8 % (11.0-15.5); WHITE BLOOD COUNT (AUTO) 20.4 K/uL (4.8-10.8)
[2023-12-24 04:03] LABS: CREATININE 2.1 mg/dL (0.5-1.3); PHOSPHORUS 6.7 mg/dL (2.5-4.9)
[2023-12-24 05:22] LABS: ABG BASE EXCESS -4.8 mmol/L (-2.0-3.0); ABG HCO3 20.9 mmol/L (21.0-28.0); ABG OXYGEN SATURATION 90.7 % (95.0-99.0); ABG PCO2 41 mmHg (35-48); ABG PH 7.323 (7.35-7.450); PO2, ARTERIAL BG 63.5 mmHg (83.0-108.0); VENT MODE, BG AC (ROOM AIR)
[2023-12-24] MEDS ORDERED: HEPARIN 5,000 UNIT VIAL IV PRN (07:30)
[2023-12-24] MEDS: AMIODARONE 200 MG TABLET PO ONE (07:33)
[2023-12-24] MEDS: HEPARIN 25,000 UNITS/250ML D5W 250 ML IV SCH (07:41)
[2023-12-24] MEDS: METOPROLOL TARTRATE 25 MG TAB PO SCH (09:43)
[2023-12-24] MEDS: INSULIN GLARGINE 100 UNITS/ML 10 ML VIAL SQ ONE (12:59)
[2023-12-24 14:20] LABS: CREATININE 2.6 mg/dL (0.5-1.3); POTASSIUM 4.5 mmol/L (3.5-5.1)
[2023-12-24] MEDS: VASOPRESSIN 40 UNITS in 0.9%NACL 50ML 40 ML IV SCH (19:05)
[2023-12-24] MEDS: DEXTROSE 5 % AND 0.9 % NACL 1,000 ML IV SCH (19:06)
[2023-12-24] MEDS: AMIODARONE 200 MG TABLET PO SCH (20:18)
[2023-12-24] MEDS: INSULIN GLARGINE 100 UNITS/ML 10 ML VIAL SQ SCH (22:01)
[2023-12-25] VITALS (76 sets, daily range): BP systolic 67–128; BP diastolic 31–90; PULSE 107–162; RESP 12–43; O2SAT 94–100
[2023-12-25 04:07] LABS: BASOPHILS # (AUTO) 0.03 K/uL (0.00-0.20); BASOPHILS % (AUTO) 0.1 % (0.0-5.0); HEMATOCRIT 45.8 % (42-54); IMMATURE GRANULOCYTE ABSOLUTE 0.23 K/uL (0-1); LYMPHOCYTES # (AUTO) 0.8 K/uL (1.0-4.8); LYMPHOCYTES % (AUTO) 3.5 % (21.0-51.0); MEAN CORPUSCULAR HEMOGLOBIN 28.8 pg (27.0-33.0); MEAN CORPUSCULAR HGB CONC 30.6 g/dL (32.0-36.0); MEAN CORPUSCULAR VOLUME 94.2 fL (79-99); MONOCYTES # (AUTO) 1.9 K/uL (0.1-1.0); NEUTROPHILS # (AUTO) 20.5 K/uL (1.8-7.7); NEUTROPHILS % (AUTO) 87.4 % (40.0-77.0); NUCLEATED RED BLOOD CELLS 0.1 % (0.0-0.19); PLATELET COUNT (AUTO) 132 K/uL (130-400); RED BLOOD CELL COUNT(AUTO) 4.86 MIL/uL (4.50-6.20); RED CELL DISTRIBUTION WIDTH 15.4 % (11.0-15.5); WHITE BLOOD COUNT (AUTO) 23.5 K/uL (4.8-10.8)
[2023-12-25 04:17] LABS: ABG BASE EXCESS -7.7 mmol/L (-2.0-3.0); ABG HCO3 18.6 mmol/L (21.0-28.0); ABG OXYGEN SATURATION 94.1 % (95.0-99.0); ABG PCO2 41 mmHg (35-48); PO2, ARTERIAL BG 78.4 mmHg (83.0-108.0); VENT MODE, BG AC (ROOM AIR)
[2023-12-25 04:24] LABS: CREATININE 3.1 mg/dL (0.5-1.3); POTASSIUM 5.3 mmol/L (3.5-5.1)
[2023-12-25 06:34] LABS: HEMOGLOBIN A1C 8.1 % (4.0-6.0)
[2023-12-25] MEDS: AMIODARONE 150MG VIAL 150 MG in DEXTROSE 5%-WATER 100 ML IV SCH (08:17)
[2023-12-25] MEDS: AMIODARONE 200 MG TABLET PO SCH (08:18)
[2023-12-25] MEDS: SODIUM BICARB 50MEQ 50ML VIAL 50 ML ONE (08:20)
[2023-12-25] MEDS: SODIUM BICARB 50MEQ 50ML VIAL IV ONE (08:20)
[2023-12-25] MEDS: CEFEPIME HCL 2 GM VIAL IVPB SCH (08:23)
[2023-12-25] MEDS ORDERED: MORPHINE PO PRN (10:30)
[2023-12-25] MEDS ORDERED: MORPHINE 5 MG/ML VIAL (5MG OR GREATER DOSE) IM PRN (10:30)
[2023-12-25] MEDS ORDERED: ONDANSETRON 4MG INJ IVP PRN (10:30)
[2023-12-25] MEDS ORDERED: ACETAMINOPHEN 325 MG TAB PO PRN (10:30)
[2023-12-25] MEDS ORDERED: LORAZEPAM 2 MG/ML 1 ML VIAL IVP PRN (10:30)
[2023-12-25] MEDS ORDERED: ARTIFICAL TEARS SOL 15 ML OU PRN (10:30)
[2023-12-25] MEDS ORDERED: ATROPINE SULFATE 5 ML DROPS PO PRN ×2 (10:30)
[2023-12-25] MEDS: SCOPOLAMINE HYDROBROMIDE 1 EACH ADH..PATCH TD SCH (11:13)
[2023-12-25] MEDS: MORPHINE 2 MG SYG IVP ONE (11:23)
[2023-12-25] MEDS: MORPHINE 4 MG SYG IVP ONE (11:57)
[2023-12-25] MEDS: MORPHINE 4 MG SYG ONE (11:57)
[2023-12-25] MEDS ORDERED: METRONIDAZOLE 500MG/100ML BAG 100 ML IVPB SCH (14:00)
== END 2023-12-25 12:13 | DRG 870 ==
LOC: EDH 14:43 → EDHIP 20:09 → OBSVTOIN 20:09 → 2AH 12-15 01:50 → 2BH 12-15 18:16
PROVIDERS: ADMIT Internal Medicine Critical Care Medicine; ATTEND Internal Medicine Critical Care Medicine
PROC: 5A09357 Assistance with Respiratory Ventilation, Less than 24 Consecutive Hours, Continuous Positive Airway Pressure (ICD-10-PCS; 2023-12-14)
PROC: 0BH17EZ Insertion of Endotracheal Airway into Trachea, Via Natural or Artificial Opening (ICD-10-PCS; principal; 2023-12-15)
PROC: 5A1955Z Respiratory Ventilation, Greater than 96 Consecutive Hours (ICD-10-PCS; 2023-12-15)
PROC: 03HY32Z Insertion of Monitoring Device into Upper Artery, Percutaneous Approach (ICD-10-PCS; 2023-12-17)
PROC: B34HZZZ Ultrasonography of Right Upper Extremity Arteries (ICD-10-PCS; 2023-12-17)
PROC: 02HV33Z Insertion of Infusion Device into Superior Vena Cava, Percutaneous Approach (ICD-10-PCS; 2023-12-17)
DX: A41.9 Sepsis, unspecified organism (principal); J96.01 Acute respiratory failure with hypoxia; I50.33 Acute on chronic diastolic (congestive) heart failure; I21.A1 Myocardial infarction type 2; J15.9 Unspecified bacterial pneumonia; J96.02 Acute respiratory failure with hypercapnia; I13.0 Hypertensive heart and chronic kidney disease with heart failure and stage 1 through stage 4 chronic kidney disease, or unspecified chronic kidney disease; E87.0 Hyperosmolality and hypernatremia; E87.4 Mixed disorder of acid-base balance; J98.11 Atelectasis; N17.9 Acute kidney failure, unspecified; Z20.822 Contact with and (suspected) exposure to COVID-19; K80.20 Calculus of gallbladder without cholecystitis without obstruction; E11.65 Type 2 diabetes mellitus with hyperglycemia; J45.909 Unspecified asthma, uncomplicated; G47.30 Sleep apnea, unspecified; F32.9 Major depressive disorder, single episode, unspecified; D63.8 Anemia in other chronic diseases classified elsewhere; E11.22 Type 2 diabetes mellitus with diabetic chronic kidney disease; N28.1 Cyst of kidney, acquired; K57.30 Diverticulosis of large intestine without perforation or abscess without bleeding; E66.9 Obesity, unspecified; I35.1 Nonrheumatic aortic (valve) insufficiency; I25.10 Atherosclerotic heart disease of native coronary artery without angina pectoris; Z95.1 Presence of aortocoronary bypass graft; Z68.34 Body mass index [BMI] 34.0-34.9, adult; E78.5 Hyperlipidemia, unspecified; G47.33 Obstructive sleep apnea (adult) (pediatric); I48.0 Paroxysmal atrial fibrillation; N18.31 Chronic kidney disease, stage 3a; N40.0 Benign prostatic hyperplasia without lower urinary tract symptoms; I95.9 Hypotension, unspecified; Z66 Do not resuscitate; Z79.82 Long term (current) use of aspirin; Z79.899 Other long term (current) drug therapy; Z91.199 Patient's noncompliance with other medical treatment and regimen due to unspecified reason
CPT/HCPCS: 31500; 36415; 36556; 36600; 70450; 71045; 71250; 71270; 74018; 74177; 76376; 76700; 80048; 80053; 80190; 80202; 81003; 82010; 82150; 82435; 82550; 82803; 82947; 82948; 83036; 83605; 83690; 83735; 83880; 83935; 84100; 84132; 84145; 84295; 84443; 84484; 85018; 85025; 85378; 85610; 85730; 87040; 87071; 87086; 87205; 87635; 87804; 93005; 93306; 93312; 93325; 93356; 93880; 93926; 93970; 94002; 94003; 94640; 94660; 94664; 96374; 96375; 99291; C1751; C1894; G0378; J0282; J0360; J0692; J0696; J1160; J1644; J1650; J1815; J1940; J2185; J2270; J2371; J2704; J2765; J2919; J3010; J3475; J3480; J3490; J7050; J7060; Q9967; 3370; A4600; A9900; J3370